=== PATIENT | male | born 1985 | race Caucasian/White ===

== ENCOUNTER → 2018-08-04 | Outpatient (CLI) | payer OTHER | END | disposition home or self-care (01) | LOC: EMPHLTH 10:25 | PROVIDERS: ATTEND Internal Medicine | DX: Z02.1 Encounter for pre-employment examination (principal) | CPT/HCPCS: 86706; 86735; 86762; 86765; 86787 ==

== ENCOUNTER 2020-11-16 12:21 | Emergency (ER) | payer OTHER ==
[~2020-11-16] VITALS: Ht 162.6 cm; Wt 87.3 kg
[2020-11-16] MEDS ORDERED: SERT100T12 PO (12:33)
[2020-11-16] MEDS ORDERED: BUPR100SR PO (12:33)
[2020-11-16] MEDS ORDERED: TEST200V22 IM (12:33)
[2020-11-16] MEDS ORDERED: PRAZ1 PO (12:33)
[2020-11-16] MEDS ORDERED: IBUPROFEN 800 MG TABLET PO ONE (13:00)
[2020-11-16] MEDS ORDERED: ONDANSETRON HCL 4 MG TABLET PO ONE (13:00)
[2020-11-16 15:24] VITALS: BP 123/73
== END 2020-11-16 15:33 | disposition home or self-care (01) ==
LOC: EMS 12:21
DX: S16.1XXA Strain of muscle, fascia and tendon at neck level, initial encounter (principal); F32.9 Major depressive disorder, single episode, unspecified; F07.81 Postconcussional syndrome; Y04.0XXA Assault by unarmed brawl or fight, initial encounter; Y93.89 Activity, other specified; Y92.89 Other specified places as the place of occurrence of the external cause; Y99.0 Civilian activity done for income or pay
CPT/HCPCS: 70450; 99284; Q0162